=== PATIENT | male | born 1950 | race Caucasian/White ===

== ENCOUNTER 2017-06-21 08:35 | Day surgery (SDC) | payer MEDICARE ==
[~2017-06-21] VITALS: Ht 170.2 cm; Wt 115.7 kg
[~2017-06-21 08:35] MED LIST: 0.9% Sodium Chloride 1,000 ML IV SCH; ASCO-294 PO; ASPI-973 PO; CHOL200047 PO; FOLI0.4T2 PO; LACT1CAP73 PO; METF500T4 PO; MULT-1018 PO; RIVA20TA PO; Sodium Chloride LOK Flush 10 mL Syringe IV PRN; TAMS0.4C98 PO; fentaNYL-PF 50 mCg/mL 2 mL Inj IVPUSH PRN
[2017-06-21 09:18] VITALS: BP 143/88; PULSE 63; RESP 18; O2SAT 97
[2017-06-21 10:45] VITALS: BP 139/78; PULSE 59; RESP 12; O2SAT 95
[2017-06-21 10:52] VITALS: BP 139/78; PULSE 56; RESP 12; O2SAT 94
[2017-06-21 11:02] VITALS: BP 112/70; PULSE 58; RESP 16; O2SAT 97
--- NOTE | 2017-06-21 13:15 | ENDO ---
[address] [address] ENDOSCOPY PROCEDURE PATIENT: DELROY GRIMM : 1950 MR#: [id number] ADMIT: 06/21/2017 JOB ID: [id number] PROCEDURE: Colonoscopy. INDICATIONS: Screening. Patient's ASA classification is II. Mallampati score is II. MEDICATIONS: Versed 5 mg, fentanyl 100 mcg. INSTRUMENT USED: PCF-H180AL. Prep quality was fair. PROCEDURE DETAILS: After informed consent was obtained, the patient was brought to the GI suite, where he was placed on oxygen via nasal cannula and monitored with continuous pulse oximeter, telemetry, and blood pressure monitoring. A time-out was performed. Then, he was placed in the left lateral decubitus position and medications were administered for sedation. Digital rectal exam was performed which was unremarkable. The colonoscope was then inserted into the rectum and advanced under direct visualization to the cecum. Advancing to the cecum was quite difficult secondary to a tortuous and redundant colon. To reach the cecum, we did have to have change his position multiple times as well as the application of abdominal pressure. Once the cecum was reached, the colonoscope was withdrawn back into the rectum. Mucosa and lumen were examined. In the rectum, retroflexion was performed. Following retroflexion, remaining air in the rectum was suctioned, and procedure was completed. FINDINGS: 1. In the ascending colon, there were three polyps ranging in size from 3 mm to 4 mm that were removed with a cold snare. 2. In the transverse colon, there was an approximately 4 mm polyp that was removed with the cold snare. 3. In the descending colon, there was an approximately 4 mm polyp that was removed with a cold snare. 4. In the sigmoid colon. There was an approximately 3 mm sessile polyp that was removed with a cold snare. Retroflexed views in the rectum were unremarkable. IMPRESSION: 1. Three ascending colon polyps. 2. Transverse colon polyp. 3. Descending colon polyp. 4. Sigmoid polyp. RECOMMENDATIONS: 1. Fiber-rich diet. 2. Repeat colonoscopy in two years. COMPLICATIONS: None. ESTIMATED BLOOD LOSS: Less than 5 mL.
--- NOTE | 2017-06-24 14:52 | PATH ---
SURGICAL PATHOLOGY Attending Physician:Sondra Galloway CASE STATUS: Signed Out PATIENT NAME: DELROY GRIMM PID: [id number] : 1950 DATE COLLECTED:06/21/2017 16:32 SPECIMEN: 1: Colon, Polyp 2: Colon, Polyp 3: Colon, Polyp 4: Colon, Polyp CLINICAL HISTORY: 1). ASCENDING POLYPS X3 2). TRANSVERSE POLYP X1 3). DESCENDING POLYP X1 4). SIGMOID POLYP X1 FINAL DIAGNOSIS: 1.ASCENDING COLON, POLYPS, BIOPSIES: TUBULAR ADENOMA IN 2 OF 3 FRAGMENTS. 2.TRANSVERSE COLON, POLYP, BIOPSY: TUBULAR ADENOMA. 3.DESCENDING COLON, POLYP, BIOPSY: TUBULAR ADENOMA. 4.SIGMOID COLON, POLYP, BIOPSY: HYPERPLASTIC POLYP. ICD10 D12.2 D12.3 D12.4 GROSS DESCRIPTION: Received are four formalin-filled containers, each labeled with the patient' s name. 1. Received in formalin, labeled with the patient' s name and "ascending polyps x3", are three fragments of franklin, soft tissue ranging in size from 0.2 x 0.1 x 0.1 x 0.1 cm to 0.2 x 0.2 x 0.2 cm. All fragments are totally submitted in cassette 1A. 2. Received in formalin, labeled with the patient' s name and "transverse polyp x1", are four fragments of franklin, soft tissue ranging in size from less than 0.1 cm by less than 0.1 cm by less than 0.1 cm to 0.2 x 0.1 x 0.1 cm. All fragments are totally submitted in cassette 2A. 3. Received in formalin, labeled with the patient' s name and "descending polyp x1", are three fragments of franklin, soft tissue ranging in size from 0.2 x 0.1 x 0.1 cm to 0.2 x 0.2 x 0.2 cm. All fragments are totally submitted in cassette 3A. 4. Received in formalin, labeled with the patient' s name and "sigmoid polyp x1", is one fragment of franklin, soft tissue measuring 0.1 x 0.1 x 0.1 cm. The fragment is totally submitted in cassette 4A. ([id number]) MICRO DESCRIPTION: See diagnosis. ICD-9 CODES: CPT CODES: 1: 69722 2: 45961 3: 75368 4: 96700 Electronically Signed Out Aria Turcios MD [facility] [address], [place] [address] Technical component performed at [facility], [address], [place], [address]
== END 2017-06-21 23:59 | disposition home or self-care (01) ==
LOC: END 08:35
PROVIDERS: ATTEND Internal Medicine Gastroenterology
DX: Z12.11 Encounter for screening for malignant neoplasm of colon (principal); D12.2 Benign neoplasm of ascending colon; D12.3 Benign neoplasm of transverse colon; D12.4 Benign neoplasm of descending colon; K63.5 Polyp of colon; N40.1 Benign prostatic hyperplasia with lower urinary tract symptoms; R35.1 Nocturia; E11.9 Type 2 diabetes mellitus without complications; G47.30 Sleep apnea, unspecified; Z86.711 Personal history of pulmonary embolism; Z79.01 Long term (current) use of anticoagulants; Z79.84 Long term (current) use of oral hypoglycemic drugs; Z79.82 Long term (current) use of aspirin
CPT/HCPCS: 45385; 99153; G0500; J2250; J3010; J7030